=== PATIENT | female | born 1950 | race Caucasian/White ===

== ENCOUNTER 2016-10-09 08:33 | Emergency (ER) | payer MEDICARE, OTHER ==
--- NOTE | 2016-10-09 10:57 | RAD ---
PROCEDURE: Right Foot Radiographs. HISTORY: R foot pain, lateral aspect over plantar surface COMPARISON: None. FINDINGS: BONES: No fracture Accessory ossification centers: Os tibial externum and os peroneum noted. The os peroneum is large and can be associated with symptomatology. Posterior calcaneal cortical hyperostoses and blending Achilles tendon insertional enthesophyte suggested. JOINTS: First metatarsal-phalangeal joint space narrowing. First metatarsal head osseous hypertrophy squaring SOFT TISSUES: Normal. OTHER FINDINGS: The weight-bearing lateral view plantar arch probably is lower limits of normal. IMPRESSION: No fracture or dislocation First metatarsal-phalangeal joint arthrosis Multiple accessory ossification centers -correlate clinically regarding any potential current symptomatology that any may have Achilles tendon insertional enthesophyte
--- NOTE | 2016-10-09 11:01 | C.PDOC ---
History Of Present Illness 66 y/o F p/w R foot pain x 7 days. States pain is in lateral sole, radiates up calf. Denies swelling, chest pain, dyspnea, trauma, previous DVT/PE. Patient states has had same pain before and had XR and MRI in past with Dr. Fonseca but never followed up for treatment. Unaware of what imaging found. Chief Complaint (Nursing): Lower Extremity Problem/Injury Past Medical History Vital Signs: Last Vital Signs Temp 98.3 F 10/09/16 08:35 Pulse 64 10/09/16 08:35 Resp 20 10/09/16 08:35 BP 153/83 H 10/09/16 08:35 Pulse Ox 97 10/09/16 08:35 - Medical History PMH: Hypercholesterolemia, Hypothyroidism Family History: States: Unknown Family Hx - Social History Hx Tobacco Use: No Hx Alcohol Use: No Hx Substance Use: No - Immunization History Hx Tetanus Toxoid Vaccination: Yes Hx Influenza Vaccination: Yes Hx Pneumococcal Vaccination: Yes Review Of Systems Except As Marked, All Systems Reviewed And Found Negative. Constitutional: Negative for: Fever Cardiovascular: Negative for: Chest Pain Physical Exam - Physical Exam Appears: No Acute Distress Skin: No Rash Head: Normacephalic Respiratory: No Accessory Muscle Use Extremity: Tenderness (lateral R plantar surface), No Swelling Pulses: Right Dorsalis Pedis: Normal Neurological/Psych: Normal Motor, Normal Sensation Gait: Steady ED Course And Treatment O2 Sat by Pulse Oximetry: 97 Disposition - Disposition Disposition: HOME/ ROUTINE Disposition Time: 11:01 Condition: STABLE Additional Instructions: PROCEDURE: Right Foot Radiographs. HISTORY: R foot pain, lateral aspect over plantar surface COMPARISON: None. FINDINGS: BONES: No fracture Accessory ossification centers: Os tibial externum and os peroneum noted. The os peroneum is large and can be associated with symptomatology. Posterior calcaneal cortical hyperostoses and blending Achilles tendon insertional enthesophyte suggested. JOINTS: First metatarsal-phalangeal joint space narrowing. First metatarsal head osseous hypertrophy squaring SOFT TISSUES: Normal. OTHER FINDINGS: The weight-bearing lateral view plantar arch probably is lower limits of normal. IMPRESSION: No fracture or dislocation First metatarsal-phalangeal joint arthrosis Multiple accessory ossification centers -correlate clinically regarding any potential current symptomatology that any may have Achilles tendon insertional enthesophyte Prescriptions: Ibuprofen [Motrin] 1 tab PO Q6 #30 tab Instructions: Arthritis (ED) Forms: [facility] [facility] ([employer]) - Clinical Impression Clinical Impression: Foot pain
[2016-10-09 11:11] VITALS: BP 135/87; PULSE 56; RESP 14; TEMP 97.9; O2SAT 100
== END 2016-10-09 11:12 | disposition home or self-care (01) ==
LOC: C.ER 08:33
DX: M79.671 Pain in right foot (principal)
CPT/HCPCS: 73630; 96372; 99283; J1885

== ENCOUNTER 2017-04-28 06:01 | Day surgery (SDC) | payer OTHER ==
[2017-04-28] MEDS ORDERED: ePHEDrine 50 mg/ml Inj ONE (08:03)
[2017-04-28] MEDS ORDERED: Lidocaine Hydrochloride 5 ML INJ ONE (08:03)
[2017-04-28] MEDS ORDERED: Propofol 10 mg/ml Inj (20 ML) ONE (08:03)
[2017-04-28] MEDS ORDERED: Lactated Ringer's 500 ML IV ONE (08:07)
--- NOTE | 2017-04-28 08:08 | CP.SDSHP ---
Same Day Surgery H & P - History Proposed Procedure: colonoscopy Pre-Op Diagnosis: h/o colon polyps - Previous Medical/Surgical History Cardiac: Other (hyperlipidemia, vitamin D deficiency, ) Endocrine/Metabolic: Thyroid Disease Previous Surgical History: arthroscopy of right knee - Allergies Allergies: Allergies Penicillins Allergy (Verified 10/09/16 08:37) Sulfa (Sulfonamide Antibiotics) Allergy (Verified 10/09/16 08:37) - Physical Exam Vital Signs: Vital Signs 04/28/17 06:49 Temperature 98 F Pulse Rate 59 L Respiratory 19 Rate Blood Pressure 149/81 O2 Sat by Pulse 100 Oximetry Mental Status: Alert & Oriented x3 Neuro: WNL Heart: WNL Lungs: WNL GI: WNL - Impression Impression: h/o colon polyps Pt. Evaluated Today:Candidate for Anesthesia & Procedure: Yes - Date & Time Date: 04/28/17 Time: 08:08 Short Stay Discharge - Short Stay Discharge Admitting Diagnosis/Reason for Visit: CONSTIPATION, UNSPEC., H/O OF COLON POLYPS Disposition: HOME/ ROUTINE
[2017-04-28 08:42] VITALS: TEMP 98.6
[2017-04-28 09:47] VITALS: BP 148/86; PULSE 51; RESP 15; O2SAT 98
== END 2017-04-28 09:42 | disposition home or self-care (01) ==
LOC: C.ENDO 06:01
PROVIDERS: ATTEND Internal Medicine Gastroenterology
DX: K62.1 Rectal polyp (principal); K59.00 Constipation, unspecified; Z86.010 Personal history of colon polyps; E78.5 Hyperlipidemia, unspecified; E55.9 Vitamin D deficiency, unspecified
CPT/HCPCS: 45388; 88305; J2704; J7120

== ENCOUNTER 2017-07-27 11:11 | Day surgery (SDC) | payer OTHER ==
[2017-07-27 12:16] VITALS: O2SAT 100
[2017-07-27] MEDS ORDERED: Propofol 10 mg/ml Inj (20 ML) ONE (12:41)
--- NOTE | 2017-07-27 12:41 | CP.SDSHP ---
Same Day Surgery H & P - History Proposed Procedure: EGD Pre-Op Diagnosis: SEE NOTES - Previous Medical/Surgical History Endocrine/Metabolic: Thyroid Disease, Other Misc: Other Pain: 4.Moderate Pain - Allergies Allergies: Allergies Penicillins Allergy (Verified 07/27/17 12:18) RASH Sulfa (Sulfonamide Antibiotics) Allergy (Verified 07/27/17 12:18) RASH - Physical Exam General Appearance: N Vital Signs: Vital Signs 07/27/17 07/27/17 11:40 12:33 Temperature 97.8 F 97.8 F Pulse Rate 53 L 53 L Respiratory 19 19 Rate Blood Pressure 127/75 127/75 O2 Sat by Pulse 100 100 Oximetry Mental Status: Alert & Oriented x3 Neuro: WNL Heart: WNL Lungs: WNL GI: Other - {Optional Preform as Required} Breast: WNL Abdomen: Other Rectal: Other Integument: WNL : WNL Ortho: Other ENT: WNL - Impression Pt. Evaluated Today:Candidate for Anesthesia & Procedure: Yes - Date & Time Time: 12:41 Short Stay Discharge - Short Stay Discharge Admitting Diagnosis/Reason for Visit: FUNCTIONAL DYSPEPSIA Disposition: HOME/ ROUTINE
[2017-07-27] MEDS ORDERED: Lidocaine Hydrochloride 5 ML INJ ONE (12:42)
[2017-07-27] MEDS ORDERED: Belladonna-Phenobarbital PO STA (12:43)
[2017-07-27 13:09] VITALS: TEMP 97.3
[2017-07-27 13:48] VITALS: BP 135/79; PULSE 54; RESP 14
== END 2017-07-27 13:45 | disposition home or self-care (01) ==
LOC: C.ENDO 11:11
PROVIDERS: ATTEND Specialist
DX: K21.0 Gastro-esophageal reflux disease with esophagitis (principal); K29.50 Unspecified chronic gastritis without bleeding; K30 Functional dyspepsia; K44.9 Diaphragmatic hernia without obstruction or gangrene; E78.5 Hyperlipidemia, unspecified; E03.9 Hypothyroidism, unspecified
CPT/HCPCS: 43239; 88305; 88342; J2704

== ENCOUNTER 2018-06-14 09:22 | Outpatient (CLI) | payer OTHER | END 2018-06-14 09:23 | disposition home or self-care (01) | LOC: C.MAMMO 09:22 | DX: R92.8 Other abnormal and inconclusive findings on diagnostic imaging of breast (principal) ==